=== PATIENT | female | born 1970 | race African-American/Black ===

== ENCOUNTER 2018-03-01 11:13 | Observation (INO) | payer OTHER ==
[~2018-03-01] VITALS: Ht 162.6 cm; Wt 94.0 kg
[2018-03-01 12:04] VITALS: BP 119/86
[2018-03-01] MEDS ORDERED: ONDANSETRON PF 4 MG/2 ML VIAL. IV PRN (13:00)
[2018-03-01 13:18] LABS: BASO % 1 % (0-3); EOS # 0.2 x10^3/uL (0.0-0.7); EOS % 3 % (0-3); HEMATOCRIT 36.6 % (36.0-47.0); HEMOGLOBIN 12.6 g/dL (12.0-15.5); LYMPH # 2.3 x10^3/uL (1.0-4.8); LYMPH % 27 % (24-48); MEAN CORPUSCULAR HEMOGLOBIN 30 pg (25-35); MEAN CORPUSCULAR HGB CONC 35 g/dL (31-37); MEAN CORPUSCULAR VOLUME 88 fL (79-100); MONO # 0.5 x10^3/uL (0.0-1.1); MONO % 5 % (0-9); NEUT # 5.6 x10^3uL (1.8-7.7); NEUT % 65 % (31-73); PLATELET COUNT 308 x10^3/uL (140-400); RED BLOOD COUNT 4.16 x10^6/uL (3.50-5.40); RED CELL DISTRIBUTION WIDTH 14.6 % (11.5-14.5); WHITE BLOOD COUNT 8.7 x10^3/uL (4.0-11.0)
[2018-03-01 13:33] LABS: ALBUMIN 3.2 g/dL (3.4-5.0); ALBUMIN/GLOBULIN RATIO 0.8 (1.0-1.7); CALCIUM 8.7 mg/dL (8.5-10.1); CREATININE 0.6 mg/dL (0.6-1.0); GFR 129.1; TOTAL BILIRUBIN 0.2 mg/dL (0.2-1.0); TOTAL PROTEIN 7.2 g/dL (6.4-8.2)
[2018-03-01] MEDS ORDERED: IOHEXOL 240 MG/ML 50ML VIAL. ONE (13:52)
[2018-03-01] MEDS ORDERED: IOHEXOL 300 MG/ML 75 ML VIAL. IV ONE (14:00)
[2018-03-01 14:05] LABS: AMYLASE 82 U/L (25-115); LIPASE 103 U/L (73-393)
[2018-03-01] MEDS ORDERED: IBUP800T19 PO (14:06)
[2018-03-01] MEDS ORDERED: TERB250T11 PO (14:08)
[2018-03-01] MEDS ORDERED: PRAV10TA2 PO (14:08)
[2018-03-01] MEDS ORDERED: AMLO5TAB4 PO (14:08)
[2018-03-01] MEDS ORDERED: VALS1TAB3 PO (14:08)
[2018-03-01] MEDS ORDERED: OMEP40CA5 PO (14:08)
[2018-03-01 14:17] LABS: BACTERIA,URINE 0 /HPF (0-FEW); BILIRUBIN,URINE NEG (NEG); CLARITY,URINE CLEAR; COLOR,URINE YELLOW; GLUCOSE,URINE NEG (NEG); NITRITE,URINE NEG (NEG); RBC,URINE RARE /HPF (0-2); SQUAMOUS EPITHELIAL CELL,UR OCC /LPF; UROBILINOGEN,URINE 0.2 mg/dL (0.2 mg/dL); WBC,URINE RARE /HPF (0-4)
[2018-03-01] MEDS: IV NORMAL SALINE 1,000ML 1,000 ML IV SCH ×2 (15:00→23:19)
[2018-03-01 15:13] VITALS: BP 116/72
--- NOTE | 2018-03-01 15:53 | NUR ---
NSG NOTE; ADMISSION DIRECT ADMIT TO ROOM [address] PADILLA'S OFFICE [facility] BY FAMILY [facility]ERS PT C/O LOWER ABD PAIN X 2 MONTHS. HX COLON CANCER 2016
--- NOTE | 2018-03-01 16:10 | RAD ---
PQRS Compliance Statement: One or more of the following individualized dose reduction techniques were utilized for this examination: 1. Automated exposure control 2. Adjustment of the mA and/or kV according to patient size 3. Use of iterative reconstruction technique CT ABD PELV W/ORAL IV CONTRAST Clinical Indication: hx of colon CA, partial colectomy. Abdominal pain. Comparison: None. Technique: Helical CT imaging of the abdomen and pelvis is performed after 75 cc Omnipaque 300 IV contrast. Oral contrast also given. Findings: Mild atelectasis in the bilateral lower lobes. The cardiac size is normal. 9 mm cyst or hemangioma in segment 8 of the liver. Liver otherwise homogeneous. The gallbladder, spleen, pancreas, adrenal glands, abdominal aorta, and kidneys are normal. Tiny cortical cyst upper pole of left kidney. Small cyst lower pole of right kidney. Stomach unremarkable. No small bowel obstruction. The appendix is normal. There is no colon wall thickening. There are a few diverticula of the descending colon. Small fat-containing umbilical hernia. Urinary bladder is normal. Uterus unremarkable. No pelvic free fluid. Bilateral inguinal lymph nodes may be reactive. There is severe lower lumbar facet hypertrophy. IMPRESSION: 1. No acute abdominal or pelvic abnormality. 2. Small cyst or hemangioma in the right hepatic lobe. 3. Minimal descending colon diverticulosis without diverticulitis. Electronically signed by: Olegario Rogers MD (03/01/2018 4:06 PM) [id number]
[2018-03-01 19:19] VITALS: BP 139/85
[2018-03-01] MEDS ORDERED: POTASSIUM CHLORIDE 20 MEQ/15 ML ORAL LIQUID. FT SCH (20:00)
[2018-03-01] MEDS ORDERED: PRAVASTATIN 20 MG TABLET. PO SCH (21:00)
[2018-03-01] MEDS ORDERED: IBUPROFEN 800 MG TABLET. PO SCH (21:00)
[2018-03-01 23:12] VITALS: BP 123/68
[2018-03-02] MEDS ORDERED: POTASSIUM CHLORIDE 20 MEQ TABLET.ER. PO ONE
[2018-03-02] MEDS: IV NORMAL SALINE 1,000ML 1,000 ML IV SCH (03:36)
[2018-03-02 05:18] VITALS: BP 124/70
[2018-03-02 06:38] LABS: BASO % 1 % (0-3); CALCIUM 8.4 mg/dL (8.5-10.1); CREATININE 0.5 mg/dL (0.6-1.0); EOS # 0.2 x10^3/uL (0.0-0.7); EOS % 3 % (0-3); GFR 159.3; HEMATOCRIT 33.3 % (36.0-47.0); HEMOGLOBIN 11.6 g/dL (12.0-15.5); LYMPH # 2.3 x10^3/uL (1.0-4.8); LYMPH % 32 % (24-48); MEAN CORPUSCULAR HEMOGLOBIN 31 pg (25-35); MEAN CORPUSCULAR HGB CONC 35 g/dL (31-37); MEAN CORPUSCULAR VOLUME 89 fL (79-100); MONO # 0.5 x10^3/uL (0.0-1.1); MONO % 7 % (0-9); NEUT # 4.2 x10^3uL (1.8-7.7); NEUT % 58 % (31-73); PLATELET COUNT 283 x10^3/uL (140-400); POTASSIUM 3.5 mmol/L (3.5-5.1); RED BLOOD COUNT 3.77 x10^6/uL (3.50-5.40); RED CELL DISTRIBUTION WIDTH 14.5 % (11.5-14.5); WHITE BLOOD COUNT 7.2 x10^3/uL (4.0-11.0)
[2018-03-02] MEDS ORDERED: PANTOPRAZOLE 40 MG TABLET. PO SCH (07:30)
[2018-03-02] MEDS ORDERED: hydroCHLOROthiazide 12.5 MG CAPSULE PO SCH (09:00)
[2018-03-02] MEDS ORDERED: TERBINAFINE 250 MG TABLET. PO SCH (09:00)
[2018-03-02] MEDS ORDERED: amLODIPine BESYLATE 5 MG TABLET PO SCH (09:00)
[2018-03-02] MEDS ORDERED: LOSARTAN 50 MG TABLET. PO SCH (09:00)
[2018-03-02] MEDS ORDERED: TRAM50TA PO (09:35)
[2018-03-02 09:49] LABS: FECAL OB PT NEGATIVE (NEG)
[2018-03-02 10:46] VITALS: BP 127/78
--- NOTE | 2018-03-02 11:06 | NUR ---
NSG NOTE;DISCHARGE VERBAL AND WRITTEN DISCHARGE INSTRUCTIONS GIVEN TO PT WITH VERBAL UNDERSTANDING WRITTEN RX GIVEN TO PT DISCHARGE TO HOME AT 1104 VIA AMB ACCOMP BY DAUGHTER
--- NOTE | 2018-03-03 02:27 | DS ---
DATE OF DISCHARGE: 03/02/2018 HOSPITAL COURSE: The patient is a 47-year-old -[place] female with a history of colon cancer. The patient came in to the office with a month history of abdominal pain. She noted the pain was increasing primarily and getting worse. The patient was admitted for further evaluation and observation. CAT scan of her abdomen and pelvis did not show anything acute. Recommend she followup. 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 The patient's labs are basically unremarkable, slightly anemic at 11.6 and 33, potassium was low at 3, came up to 3.5 with supplementation. We will continue to monitor on that. I told to stop nonsteroidals and gave her tramadol, says she has a lot of pain in her joints, specifically in the morning. She has to stand on her feet for 8 hours a day and this makes it very difficult and because of her overall history, will stay away from nonsteroidals. In any case, the patient made good progress, was discharged home. IMPRESSION: Abdominal pain, history of colon cancer, anemia, hypokalemia, [id number] protein malnutrition. PLAN: The patient will follow up accordingly as an outpatient with GI. Continue to monitor potassium and CBC and check stools for any signs of blood, stay off nonsteroidals, use tramadol for arthritic pain. CHERRIE PADILLA MD DR: BARBRA/kuldip JOB#: [id number] / [id number]
== END 2018-03-02 11:00 | disposition home or self-care (01) ==
LOC: 1 SOUTH 11:42 → INTOOBSV 11:42
PROVIDERS: ADMIT Family Medicine; ATTEND Family Medicine
DX: R10.9 Unspecified abdominal pain (principal); D64.9 Anemia, unspecified; E87.6 Hypokalemia; E44.0 Moderate protein-calorie malnutrition; I10 Essential (primary) hypertension; K21.9 Gastro-esophageal reflux disease without esophagitis; E78.00 Pure hypercholesterolemia, unspecified; K92.1 Melena; K64.2 Third degree hemorrhoids; Z90.49 Acquired absence of other specified parts of digestive tract
CPT/HCPCS: 36415; 74177; 80048; 80053; 81001; 82150; 82274; 83690; 85025; 87086; 96360; 96361; G0378; G0379; Q9967; J7030

== ENCOUNTER 2021-06-03 23:40 | Emergency (ER) | payer OTHER ==
[~2021-06-03] VITALS: Ht 315 cm; Wt 84.1 kg
[~2021-06-03 23:40] MED LIST: AMLO5TAB4 PO; IBUP800T19 PO; OMEP40CA7 PO; PRAV10TA2 PO; TERB250T11 PO; TRAM50TA PO; VALS1TAB3 PO
--- NOTE | 2021-06-04 00:06 | PHYS DOC ---
Adult General Chief Complaint Chief Complaint: DEHYDRATION HPI HPI Patient is a 50-year-old female with a past medical history significant for hypertension, hypercholesterolemia and GERD who presents with a chief complaint of concern for dehydration. States she was outside all day in the heat, moving around and sweating and this evening is feeling really fatigued and is having generalized body aches in her upper and lower extremities. States she hadn't really eaten anything today because he was too busy and did sip a little fluids but feels mildly nauseous, but hasn't thrown up. Denies any recent traumas, travels, fevers, headaches, chest pain, shortness of breath, abdominal pain, vomiting, dysuria, hematuria, blood in the stool or diarrhea. Denies any known ill contacts or recent Covid/flu/cold symptoms. Denies any alcohol or drug use. Denies any cardiovascular history. Review of Systems Review of Systems Review of systems otherwise unremarkable except noted in HPI Current Medications Current Medications Current Medications Medications (Trade) Dose Ordered Sig/Nathalie Start Time Stop Time Status Last Admin Dose Admin Lactated Ringer's 1,000 ml @ 1,000 mls/hr 1X ONCE 06/04/21 00:30 06/04/21 01:29 Ondansetron HCl (Zofran) 4 mg 1X ONCE 06/04/21 00:30 06/04/21 00:31 Allergies Allergies Allergies Coded Allergies Type Severity Reaction Last Updated Verified Penicillins Allergy Intermediate 03/02/18 Yes vancomycin Allergy Intermediate RASH, ITCHING 03/02/18 Yes Physical Exam Physical Exam Constitutional: Well developed, well nourished, no acute distress, non-toxic appearance. [] HENT: Normocephalic, atraumatic, oropharynx moist, no oral exudates, nose normal. [] Eyes: conjunctiva normal, no discharge. [] Neck: Normal range of motion, no tenderness, supple, no stridor. [] Cardiovascular:Heart rate regular rhythm, no murmur [] Lungs & Thorax: Bilateral breath sounds clear to auscultation [] Abdomen: soft, no tenderness, no masses, no pulsatile masses. [] Skin: Warm, dry, no erythema, no rash. [] Extremities: No tenderness, ROM intact, no edema. [] Neurologic: Alert and oriented X 3, no focal deficits noted. [] Psychologic: Affect normal, judgement normal, mood normal. [] EKG EKG Rate of 79, QRS of 96, QTc of 441 with no STEMI [] Radiology/Procedures Radiology/Procedures [] Heart Score C/O Chest Pain: No Risk Factors: Risk Factors: DM, Current or recent (<one month) smoker, HTN, HLP, family history of CAD, obesity. Risk Scores: Risk Factors: DM, Current or recent (<one month) smoker, HTN, HLP, family history of CAD, obesity. Course & Med Decision Making Course & Med Decision Making Patient is a 50-year-old female presents with a chief complaint of concern for dehydration Vital signs not concerning. Physical exam noted above. Patient placed on the monitor with IV access established. Started on IV fluid resuscitation. EKG noted above with no STEMI. Troponin normal. Laboratory analysis not concerning outside of mildly low potassium. Urinalysis not concerning. On reassessment, patient stated she was feeling much better and was ready to be discharged home. Discussed all findings with family. Advised staying out of the heat over the next couple of days and staying cool, and well-hydrated as well as having appropriate nutrition. Advised to call primary care physician in the morning to update on ED visit and set up follow-up. Gave return precautions to the ED. Family grateful, verbalized understanding and agreed with plan of discharge. [] Dragon Disclaimer Dragon Disclaimer This electronic medical record was generated, in whole or in part, using a voice recognition dictation system. Departure Departure: Impression: Primary Impression: Heat exhaustion Disposition: HOME / SELF CARE / HOMELESS Condition: GOOD Referrals: CHERRIE PADILLA MD (PCP) Patient Instructions: Heat Disorders Additional Instructions: Thank you for coming into the emergency department tonight and allowing us to take care of you. Please read all of the attached information very carefully to go back over things we discussed. Over the next couple of days, please stay indoors and stay cool, well-hydrated and eat appropriate nutrition. Please call your primary care physician in the morning to update on your ED visit and set up a follow-up as needed. Please come back to the emergency department immediately with new or concerning symptoms as discussed. MARITZA POP MD Jun 04, 2021 00:06
[2021-06-04 00:27] LABS: BASO # 0.1 x10^3/uL (0.0-0.2); BASO % 1 % (0-3); EOS # 0.5 x10^3/uL (0.0-0.7); EOS % 4 % (0-3); HEMATOCRIT 41.4 % (36.0-47.0); HEMOGLOBIN 14.1 g/dL (12.0-15.5); LYMPH # 3.6 x10^3/uL (1.0-4.8); LYMPH % 30 % (24-48); MEAN CORPUSCULAR HEMOGLOBIN 31 pg (25-35); MEAN CORPUSCULAR HGB CONC 34 g/dL (31-37); MEAN CORPUSCULAR VOLUME 91 fL (79-100); MONO # 0.8 x10^3/uL (0.0-1.1); MONO % 7 % (0-9); NEUT # 6.8 x10^3uL (1.8-7.7); NEUT % 58 % (31-73); PLATELET COUNT 305 x10^3/uL (140-400); RED BLOOD COUNT 4.54 x10^6/uL (3.50-5.40); RED CELL DISTRIBUTION WIDTH 14.4 % (11.5-14.5); WHITE BLOOD COUNT 11.8 x10^3/uL (4.0-11.0)
[2021-06-04 00:29] LABS: CALCIUM 9.5 mg/dL (8.5-10.1); CREATININE 0.8 mg/dL (0.6-1.0); GFR 91.5; POTASSIUM 3.1 mmol/L (3.5-5.1)
[2021-06-04] MEDS ORDERED: ONDANSETRON PF 4 MG/2 ML VIAL. IVP ONE (00:30)
[2021-06-04] MEDS ORDERED: IV RINGERS SOLUTION,LACTATED 1,000 ML IV ONE (00:30)
[2021-06-04 02:05] VITALS: BP 116/70
[2021-06-04 02:07] LABS: BILIRUBIN,URINE NEG (NEG); CLARITY,URINE HAZY; COLOR,URINE YELLOW; GLUCOSE,URINE NEG (NEG)
[2021-06-04 02:08] LABS: BACTERIA,URINE 0 /HPF (0-FEW); HYALINE CASTS, URINE FEW /HPF; NITRITE,URINE NEG (NEG); SQUAMOUS EPITHELIAL CELL,UR MOD /LPF; UROBILINOGEN,URINE 0.2 mg/dL (0.2 mg/dL)
--- NOTE | 2021-06-04 03:04 | EKG ---
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
== END 2021-06-04 02:20 | disposition home or self-care (01) ==
LOC: ER 23:40
DX: T67.5XXA Heat exhaustion, unspecified, initial encounter (principal); E86.0 Dehydration; K21.9 Gastro-esophageal reflux disease without esophagitis; E78.5 Hyperlipidemia, unspecified; Z88.0 Allergy status to penicillin; Z88.1 Allergy status to other antibiotic agents; X58.XXXA Exposure to other specified factors, initial encounter; Y93.89 Activity, other specified; Y92.89 Other specified places as the place of occurrence of the external cause; Y99.8 Other external cause status
CPT/HCPCS: 36415; 80048; 81001; 84484; 85025; 93005; 96361; 96374; 99284; J2405; J7120